=== PATIENT | male | born 1965 | race Caucasian/White ===

== ENCOUNTER 2022-10-20 06:46 | Day surgery (SDC) | payer BC ==
[2022-10-14 10:12] LABS: BASOPHILS % (AUTO) 0.6 % (0-1); EOSINOPHILS # (AUTO) 0.2 X10'3 (0-0.9); EOSINOPHILS % (AUTO) 2.4 % (0-6); LYMPHOCYTES # (AUTO) 2.1 X10'3 (1.1-4.8); LYMPHOCYTES % (AUTO) 33.2 % (21-51); MEAN CORPUSCULAR HEMOGLOBIN 30.9 PG (27.0-31.0); MEAN CORPUSCULAR HGB CONC 33.3 g/dL (33.0-36.5); MEAN CORPUSCULAR VOLUME 92.9 FL (78-98); MEAN PLATELET VOLUME 7.4 FL (7.4-10.4); MONOCYTES # (AUTO) 0.8 X10'3 (0-0.9); MONOCYTES % (AUTO) 12.2 % (2-12); NEUTROPHILS # (AUTO) 3.3 X10'3 (1.8-7.7); NEUTROPHILS % (AUTO) 51.6 % (42-75); PRE OP HEMATOCRIT 48.9 % (42.0-52.0); PRE OP HEMOGLOBIN 16.3 g/dL (14.0-17.9); PRE OP PLATELET COUNT 284 X10'3 (140-440); RED BLOOD COUNT 5.26 X10'6 (4.70-6.10); RED CELL DISTRIBUTION WIDTH 14.6 % (11.5-14.5)
[2022-10-14 10:29] LABS: ALKALINE PHOSPHATASE 67 IU/L (46-116); BLOOD UREA NITROGEN 25 MG/DL (7-18); BUN/CREATININE RATIO 26.9 (5.4-32.0); CALCIUM 9.7 MG/DL (8.5-10.1); CHLORIDE 105 MMOL/L (99-107); CREATININE 0.93 MG/DL (0.60-1.10); PRE OP ALT 37 U/L (30-65); PRE OP ANION GAP 8 (8-16); PRE OP AST 24 U/L (10-37); PRE OP BILIRUB, TOTAL 0.8 MG/DL (0.0-1.0); PRE OP GLUCOSE 120 MG/DL (70-104); PRE OP POTASSIUM 4.6 MMOL/L (3.4-5.1); PRE OP SODIUM 142 MMOL/L (135-145); TOTAL CARBON DIOXIDE 29.4 MMOL/L (24-32); TOTAL PROTEIN 7.9 G/DL (6.4-8.2); eGFR 84 ML/MIN
[~2022-10-20] VITALS: Ht 185.4 cm; Wt 124.9 kg
[2022-10-20] VITALS (8 sets, daily range): BP systolic 125–148; BP diastolic 69–95
[~2022-10-20 06:46] MED LIST: ASPI-1071 PO; LEVO100T9 PO; LISI20TA28 PO; ceFAZolin inj. 3,000 MG in normal saline 100ml IV soln 100 ML IV ONE; famotidine 20mg tablet PO ONE; ringers solution, lacted 1,000 ML IV SCH
[2022-10-20] MEDS ORDERED: BUPIVAcaine 0.5% inj/PF 30 ML ONE ×2 (07:06→09:23)
[2022-10-20] MEDS ORDERED: LIDOcaine 1% 30ml preserv. free vial ONE ×2 (07:06→09:23)
[2022-10-20] MEDS ORDERED: BUPIVACAINE liposomal/PF 13.3 MG/ML vial IM ONE (09:23)
[2022-10-20] MEDS ORDERED: midazolam 1 mg/ML 2ml injection ONE (09:23)
[2022-10-20] MEDS ORDERED: FENTANYL CITRATE/PF 50 MCG/1 ML VIAL ONE ×2 (09:23→10:01)
[2022-10-20] MEDS ORDERED: sevoflurane 250ml liquid IH ONE (09:30)
[2022-10-20] MEDS ORDERED: ringers solution, lacted 1,000 ML IV SCH (09:45)
[2022-10-20] MEDS ORDERED: ondansetron/PF 4mg/2ml inj IV PRN (09:45)
[2022-10-20] MEDS ORDERED: morphine 2 MG/ML inj. syringe IV PRN (09:45)
[2022-10-20] MEDS ORDERED: morphine 4 MG/ML inj SYRINge IV PRN (09:45)
[2022-10-20] MEDS ORDERED: proCHLORperazine 10 MG/2 ml inj IV PRN (09:45)
[2022-10-20] MEDS ORDERED: meperidine/PF 25mg/ml syringe IV PRN ×3 (09:45)
[2022-10-20] MEDS ORDERED: BUPIVAcaine 0.5% inj/PF 30 ml vial IJ ONE (09:59)
[2022-10-20] MEDS ORDERED: acetaminophen 1,000mg/100ml IV 100 ML IV ONE (10:11)
[2022-10-20] MEDS ORDERED: rocuronium 10mg/ml inj IV ONE (10:17)
[2022-10-20] MEDS ORDERED: ondansetron/PF 4mg/2ml inj ONE (10:17)
[2022-10-20] MEDS ORDERED: LIDOcaine 2% (20mg/ml) 5ml vial ONE (10:17)
[2022-10-20] MEDS ORDERED: glycopyrrolate 0.2mg/ml inj ONE (10:17)
[2022-10-20] MEDS ORDERED: ePHEDrine 50MG/ML INJ. ONE (10:17)
[2022-10-20] MEDS ORDERED: dexamethasone sod phosphate 4mg/ml inj. ONE (10:17)
[2022-10-20] MEDS ORDERED: propofol inj 20 ML IV ONE (10:17)
[2022-10-20] MEDS ORDERED: neostigmine methylsulfate 1 MG/ML 10ml vial ONE (10:17)
[2022-10-20] MEDS ORDERED: phenylephrine 10mg/ml inj. -priapism dosing ONE (10:33)
--- NOTE | 2022-10-20 10:47 | NUR ---
Received from OR via [facility], accompanied by Anesthesiologist and report given by AARON Anesthesiologist. PATIENT WAKING UP, DENIES PAIN, V/S WNL, SCD ON , PIV 20G LEFT HAND, BANDAIDS LAPS SITES CLOSED CDI TO ABDOMEN WITH ABDOMINAL BINDER. Addendum: 10/20/22 at 1133 by Rohan Calvert RN Amended: Links added.
[2022-10-20] MEDS ORDERED: oxyCODONE/APAP 5-325mg tablet PO PRN (10:55)
--- NOTE | 2022-10-20 12:07 | NUR ---
ALL DISCHARGE CRITERIA HAS BEEN MET. VSS, PAIN AT A TOLERABLE LEVEL, VOIDING AND ABLE TO SAFELY AMBULATE AND TRANSFER SELF. IV TAKEN OUT WITHOUT ANY COMPLICATIONS. ALL DISCHARGE INSTRUCTIONS COVERED WITH PATIENT AND ALL QUESTIONS ANSWERED. PATIENT TAKEN OUT VIA WHEELCHAIR WITH ALL BELONGINGS TO PERSONAL VEHICLE WHERE FAMILY DROVE PATIENT HOME. Addendum: 10/20/22 at 1210 by Rohan Calvert RN Amended: Links added.
== END 2022-10-20 12:07 | disposition home or self-care (01) ==
LOC: PAS 06:46
PROVIDERS: ATTEND Surgery
DX: K42.9 Umbilical hernia without obstruction or gangrene (principal); E03.9 Hypothyroidism, unspecified; I10 Essential (primary) hypertension; G47.33 Obstructive sleep apnea (adult) (pediatric); Z98.890 Other specified postprocedural states; Z79.82 Long term (current) use of aspirin; Z79.899 Other long term (current) drug therapy; Z82.49 Family history of ischemic heart disease and other diseases of the circulatory system
CPT/HCPCS: 36415; 49591; 64488; 80053; 82948; 85025; 93005; C1781; C9290; J0131; J0690; J1100; J2175; J2250; J2370; J2405; J2704; J2710; J3010; J3490; J7030; J7120; S0020; Z7506; Z7508; Z7512; A4215; A4618